=== PATIENT | male | born 1950 | race Caucasian/White ===

== ENCOUNTER 2023-07-19 09:38 | Outpatient (CLI) | payer OTHER, SELFPAY | END 2023-07-19 09:39 | disposition home or self-care (01) | LOC: NFLDREF 07-22 21:21 | PROVIDERS: PCP Internal Medicine; Referring Provider Internal Medicine; Visit Provider Internal Medicine | DX: I50.9 Heart failure, unspecified (principal) | CPT/HCPCS: 80061 ==

== ENCOUNTER 2024-02-05 08:49 | Outpatient (CLI) | payer MEDICARE, SELFPAY ==
[2024-02-05] MEDS: PERFLUTREN LIPID MICROSPHERES 2 ML VIAL IV (09:45)
--- NOTE | 2024-02-05 09:56 | PC.NURSE ---
IV started in right A/C with #[id number] without difficulty. Definitiy given. IV then d/c'd with catheter intact. Pt tolerated procedure with out difficulty
== END 2024-02-05 08:50 | disposition home or self-care (01) ==
PROVIDERS: PCP Internal Medicine; Visit Provider Internal Medicine
DX: I50.9 Heart failure, unspecified (principal)
CPT/HCPCS: 93306; Q9957

== ENCOUNTER 2024-04-30 14:27 | Outpatient (CLI) | payer MEDICARE, SELFPAY ==
--- OUTSIDE RECORDS SUMMARY | 2024-05-01 09:33 | XMS_ITS | Clinical Summary ---
Author Organization [facility] Address [place], [place] [address] Care Team Providers Care Visual Developer Name Role Phone Galileo Carballo MD Primary Care Provider Allergies No known active allergies Medications Medication Sig Dispensed Refills Start Date End Date Status tamsulosin (FLOMAX) 0.4 mg capsuleIndicatio ns:Benign prostatic hyperplasia with weak urinary stream Take 2 Capsules (0.8 mg) by mouth once daily after a meal 180 Capsule 04/25/2022 Active aspirin (ECOTRIN) 81 mg enteric coated tabletIndication s:Arteriosclerot ic heart disease Take 1 Tablet (81 mg) by mouth once daily with a meal. 90 Tablet 3 04/30/2024 Active atorvastatin (LIPITOR) 40 mg tabletIndication s:ASHD (arterioscleroti c heart disease) Take 1 Tablet (40 mg) by mouth at bedtime. You will be due for a follow up with cardiology in July of 2024. Please call in April of 2024 at [phone] to schedule. 90 Tablet 3 04/30/2024 Active clopidogreL (PLAVIX) 75 mg tabletIndication s:ASHD (arterioscleroti c heart disease) Take 1 Tablet (75 mg) by mouth once daily. You will be due for a follow up with cardiology in July of 2024. Please call in April of 2024 at [phone] to schedule. 90 Tablet 3 04/30/2024 Active furosemide (LASIX) 20 mg tabletIndication s:ASHD (arterioscleroti c heart disease) Take 1 Tablet (20 mg) by mouth once daily. You will be due for a follow up with cardiology in July of 2024. Please call in April of 2024 at [phone] to schedule. 90 Tablet 3 04/30/2024 Active losartan (COZAAR) 25 mg tabletIndication s:ASHD (arterioscleroti c heart disease) Take 1 Tablet (25 mg) by mouth once daily. You will be due for a follow up with cardiology in July of 2024. Please call in April of 2024 at [phone] to schedule. 90 Tablet 3 04/30/2024 Active metoprolol tartrate (LOPRESSOR) 100 mg tabletIndication s:ASHD (arterioscleroti c heart disease) Take 1 Tablet (100 mg) by mouth once daily. You will be due for a follow up with cardiology in July of 2024. Please call in April of 2024 at [phone] to schedule. 90 Tablet 3 04/30/2024 Active nitroglycerin (NITROSTAT) 0.4 mg sublingual tabletIndication s:ASHD (arterioscleroti c heart disease) Place 1 Tablet (0.4 mg) under the tongue every 5 minutes if needed for Chest Pain. Please call our clinic if you are experiencing an increase in cardiac symptoms. 25 Tablet 1 04/30/2024 Active spironolactone (ALDACTONE) 25 mg tabletIndication s:ASHD (arterioscleroti c heart disease),HFrEF (heart failure with reduced ejection fraction) (HC) Take 1 Tablet (25 mg) by mouth once daily. 90 Tablet 3 04/30/2024 Active aspirin (ECOTRIN) 81 mg enteric coated tabletIndication s:Arteriosclerot ic heart disease Take 1 Tablet (81 mg) by mouth once daily with a meal. 90 Tablet 3 07/19/2023 4 Discontinue d(Reorder (E-cancel not sent)) nitroglycerin (NITROSTAT) 0.4 mg sublingual tabletIndication s:ASHD (arterioscleroti c heart disease) Place 1 Tablet (0.4 mg) under the tongue every 5 minutes if needed for Chest Pain. Please call our clinic if you are experiencing an increase in cardiac symptoms. 25 Tablet 1 07/19/2023 4 Discontinue d(Reorder (E-cancel not sent)) clopidogreL (PLAVIX) 75 mg tabletIndication s:ASHD (arterioscleroti c heart disease) Take 1 Tablet (75 mg) by mouth once daily. You will be due for a follow up with cardiology in July of 2024. Please call in April of 2024 at [phone] to schedule. 90 Tablet 3 01/01/2024 4 Discontinue d(Reorder (E-cancel not sent)) furosemide (LASIX) 20 mg tabletIndication s:ASHD (arterioscleroti c heart disease) Take 1 Tablet (20 mg) by mouth once daily. You will be due for a follow up with cardiology in July of 2024. Please call in April of 2024 at [phone] to schedule. 90 Tablet 3 01/01/2024 4 Discontinue d(Reorder (E-cancel not sent)) metoprolol tartrate (LOPRESSOR) 100 mg tabletIndication s:ASHD (arterioscleroti c heart disease) Take 1 Tablet (100 mg) by mouth once daily. You will be due for a follow up with cardiology in July of 2024. Please call in April of 2024 at [phone] to schedule. 90 Tablet 3 01/01/2024 4 Discontinue d(Reorder (E-cancel not sent)) atorvastatin (LIPITOR) 40 mg tabletIndication s:ASHD (arterioscleroti c heart disease) Take 1 Tablet (40 mg) by mouth at bedtime. You will be due for a follow up with cardiology in July of 2024. Please call in April of 2024 at [phone] to schedule. 90 Tablet 3 01/01/2024 4 Discontinue d(Reorder (E-cancel not sent)) losartan (COZAAR) 25 mg tabletIndication s:ASHD (arterioscleroti c heart disease) Take 1 Tablet (25 mg) by mouth once daily. You will be due for a follow up with cardiology in July of 2024. Please call in April of 2024 at [phone] to schedule. 90 Tablet 3 01/01/2024 4 Discontinue d(Reorder (E-cancel not sent)) Active Problems Problem Noted Date Diagnosed Date Prostate cancer 03/21/2020 Encounters Date Type Department Care Team Description 04/30/2024 1:30 PM CDT Office Visit [facility] [address] [place] [address] Johny Gamez MD CV General Cardiology Est 04/06/2024 10:00 AM CDT Ancillary Procedure [address] [place] [address] 04/06/2024 9:45 AM CDT Orders Only [address] [place] [address] Lab 04/06/[address] [place] [address] Austin Charles MD Results 04/06/2024 Travel 02/07/[address] [place] [address] Austin Charles MD Results 02/05/2024 9:00 AM CDT Ancillary Procedure [facility] [address] [place] [address] 02/05/2024 Travel from Last 3 Months Immunizations Name Administration Dates Next Due COVID-19 vaccine (Moderna 100mcg/0.5mL) MONI PYLE 02/06/2021 Influenza RIV4 (Age 18+ Year s) PRESERV FREE 07/15/2019 Influenza Virus, Unspecified 08/21/2012 Influenza, High-dose Inactivated 018,07/09/2017,06/20/2015,2013,09/23/2013 Pneumococcal Poly,23-Valent (Pneumovax) 02/23/2016 Pneumococcal conj 13-Valent (Prevnar 13) 08/22/2015 Tdap 02/16/2011 Zoster (Shingrix-RZV, recombinant) 01/08/2019, Social History Tobacco Use Types Packs/Day Years Used Date Smoking Tobacco: Every Day Cigarettes Smokeless Tobacco: Never Tobacco Cessation:Ready to Q uit: Yes; Counseling Given: Yes Alcohol Use Standard Drinks/Week Comments Not Currently 0 (1 standard drink = 0.6 oz pur e alcohol) Social Connections Answer Date Recorded Frequency of Communication with Friends and Fami ly Not on file 10/07/2021 Financial Resource Strain Answer Date R ecorded Difficulty of Paying Living Expenses Not on file 10/07/2021 Difficulty of Paying Living Expenses Not on file 10/07/2021 Sex and Gender Information Value Date Recorded Sex Assigned at Not on file Gender Identity Not on file Sexual Orientation Not on file Obstetrics History Last Filed Vital Signs Vital Sign Reading Time Taken Comments Blood Pressure 117/69 02/13/2021 9:59 AM CDT Pulse 56 02/13/2021 9:59 AM CDT Temperature 37.3 ??C (99.1 ??F) 03/21/2020 2 :32 PM CDT Respiratory Rate 20 02/13/2021 9:59 AM CDT Oxygen Saturation 97% 02/13/2021 9:5 9 AM CDT Inhaled Oxygen Concentration - - Weight 146.5 kg (323 lb) 02/13/2021 9:5 9 AM CDT PT weighed with shoes on. Height - - Body Mass Index - - Plan of Treatment Health Maintenance Due Date Last Done Comments Depression screening for age 12+ 1962 BMI (ht and wt on same day) for age 18+ 1968 Hepatitis C screening for ag e 18-79 1968 Colonoscopy through age 75 1995 Lipids for age 45-75 1995 Medicare Wellness for age 65+ 2015 Tetanus booster 02/16/2021 02/16/2011 COVID-19 vaccine series ( season) 2023 03/07/2021, 02/06/2021 Influenza for age 65+ 06/07/2024 07/15/2019 , 07/23/2018, 07/09/2017, Additional history exists Tdap Completed 02/16/2011 Pneumococcal series for age 65+ Completed 6, 08/22/2015 Zoster (shingles) series for age 50+ Completed 01/08/2019, 07/23/2018 Procedures Procedure Name Priority Date/Time Associated Diagnosis Comments CTA CHEST - DUAL READ Routine 04/06/2024 10:16 AM CDT Dilation of aorta (HC) CREATININE,ISTAT Routine 04/06/2024 9:46 AM CDT Pre-procedure lab exam ECHO TTE COMPLETE W CONTRAST Routine 02/05/2024 9:55 AM CDT Heart failure (HC) from Last 3 Months Results * CTA CHEST - DUAL READ (04/06/2024 10:16 AM CDT) Anatomical Region Laterality Modality CHEST Computed Tomogra phy Impressions 04/06/2024 3:26 PM CDT 1. No acute nonvascular findings in the chest. 2. Please refer to separately dictated report for evaluation of cardiovascular structures. Please note that all CT scans at this facility use dose modulation, iterative reconstruction, and/or weight-based dosing when appropriate to reduce radiation dose to as low as reasonably achievable. Dictated by Baljit Rapp MD @ 04/06/2024 12:45:53 PM (Electronic Signature) Narrative 04/06/2024 3:26 PM CDT STUDY: THORACIC AORTIC CT ANGIOGRAM Study date: 04/06/2024 Indication: 73 year-old man with thoracic aorta enlargement on echocardiography has been referred for evaluation of thoracic aorta size and morphology. STUDY PARAMETERS: Scanner: Siemens Definition Drive Contrast: 100 ml of Omnipaque 350 Scan protocol: Gated high-pitch Radiation dose length product: 243 Image quality: Excellent FINAL IMPRESSIONS: Borderline enlarged aortic sinus (41 mm cusp-cusp) and ascending aorta (40 x 40 mm) for patient height. Please see radiology report for nonvascular findings. FINDINGS: Thoracic aorta: Left-sided arch. Mild atheromatous disease in the arch. Maximum cross-sectional dimensions are - Aortic sinus: 41 mm maximum [id number]. Ascending aorta: 40 x 40 mm. Arch: 33 x 29 mm Descending thoracic aorta: 26 x 25 mm. Great arteries: Normal great artery branching pattern. ??Brachiocephalic artery Patent. ??Visualized right subclavian artery Patent. ??Visualized right common carotid artery Patent. ??Visualized left common carotid artery Patent. ??Visualized left subclavian artery Patent. Pulmonary trunk: Maximum cross-sectional diameters are 34 x 32 mm. Vena cavae: Normal attachments to the right atrium. Pericardium: Normal without effusion. Coronary arteries: Evidence of calcium and stents in the LAD and D1. FOR PATIENT: Results are automatically released to your [employer] account once available, in compliance with federal regulations. ?? This means that you may see your results before your provider has had a chance to review them. ??Please allow 2-3 business days for your provider to comment on the results. Chris Barriga MD 04/06/2024 For Patients: As a result of the Century Cures Act, medical imaging exams and procedure reports are released immediately into your electronic medical record. ??You may view this report before your referring provider. ?? If you have questions, please contact your health care provider. OVER-READ ??OVER-READ ??OVER-READ OVER-READ: DETAILED RADIOLOGY EXTRACARDIAC OVER-READ OF CARDIAC CT 04/06/2024 TECHNIQUE: ??Please see cardiology report for technical information. ??100 cc Omnipaque-350 intravenous contrast. ?? This exam is being performed in conjunction with the services provided by the [facility] ([facility]). CLINICAL HISTORY: ??Aortic dilatation. Cardiac over-read. FINDINGS: Chest: Visualized thyroid is symmetric. No significant lymphadenopathy in the chest. Mild bibasilar dependent atelectatic changes. No focal airspace opacities or pleural effusions. Upper abdomen: No acute findings in the visualized portions. Musculoskeletal: Visualized osseous structures demonstrate diffuse degenerative changes. Austin Charles MD CT * (ABNORMAL) CREATININE,ISTAT (04/06/2024 9:46 AM CDT) CREATININE, POCT 1.20(H) 0.57 - 1.11 mg/dL 04/06/2024 9:56 AM CDT [facility] Comment:Caution: Patients ta neha Hydroxyurea have falsely increased iStat Creatinine results. Verify creatinine results ordering a Creatinine (84050.2) eGFR 64(L) >90 mL/min/1.7 3m2 04/06/2024 9:56 AM CDT [facility] Comment:As of 2021, eG FR is calculated by the CKD-EPI creatinine equation without race adjustment. eGFR can be influenced by muscle mass, exercise, and diet. The reported eGFR is an estimation only and is only applicable if the renal function is stable. Blood BLOOD SPECIMEN / Unknown 04/06/2024 9:46 AM CDT 04/06/2024 9:56 AM CDT Porter Rizo MD [facility] [address] [place] [address], [place] * ECHO TTE COMPLETE W CONTRAST (02/05/2024 9:55 AM CDT) AORTIC VALVE MEAN PG 3 mmHg EJECTION FRACTION 52 % LVEDD 5.5 cm EJECTION FRACTION 45 - 50% Anatomical Region Laterality Modality Ultrasound 02/05/2024 9:14 AM CDT Narrative 02/05/2024 11:34 AM CDT ECHOCARDIOGRAM MARY Danielle KISHORE ? Accession#: ?? [id number] : ?1950 73 years Study Date: ?? 02/05/2024 9:14:06 AM Gender: M ?BP: ? 103/60 mmHg Height: 183.00 cm ?BSA: ?2.62 m? ? ? Weight: 147.00 kg ?Tech: ? MSR ? Referring MD: AUSTIN CHARLES Site: ? [facility] Reading Location: mobile op Patient Location: Outpatient. Procedure: Color Doppler, Spectral Doppler and 2D w/ Contrast. Indication for study: Heart failure Cardiac Rhythm: Normal sinus and with premature ventricular contractions.Study quality: Final Impressions: 1. Normal LV size, normal wall thickness, mildly reduced global systolic function with an estimated EF of 45 - 50%. 2. Posterior wall and basal inferior segment are abnormal. 3. Right ventricular cavity size is normal, global systolic RV function is normal. 4. The mitral valve is sclerotic, no mitral regurgitation. 5. The ascending aorta is dilated with a maximal diameter of 4.5 cm. 6. Frequent PVCs. 7. Echo contrast was administered to enhance visualization of all left ventricular segments. Comparison The level of ascending aorta of maximal dilation on today's study was not visualized on the prior study. Chamber Sizes and Function Normal left ventricular size, normal wall thickness, mildly reduced global systolic function with an estimated EF of 45 - 50%. Left atrial size is normal. Right ventricular cavity size is normal, global systolic RV function is normal. The right atrium is normal. The pulmonary artery is of normal size and origin. The sinus of Valsalva is dilated. The ascending aorta is dilated. The posterior wall and basal inferior segment are hypokinetic. Valves, RV Pressures and Diastolic Function The aortic valve is normal in structure and trileaflet, no stenosis and no regurgitation. The mitral valve is sclerotic, no mitral regurgitation. Normal diastolic function. The tricuspid valve is normal in structure. Tricuspid regurgitation is regurgitation is not evident. The pulmonic valve is normal. No pulmonary regurgitation. Masses, Effusion, Shunts There is no pericardial effusion. The inferior vena cava is normal sized, respiratory size variation greater than 50%. No left to right shunting was detected by limited color flow Doppler interrogation of the interatrial septum. MEASUREMENTS AND CALCULATIONS 2-D Measurements and LV Function: LVID (d) 5.5 cm LV FS% (2D) ?? 22 % LVID (s) 4.3 cm LVOT diameter 2.1 cm IVS (d) ??1.1 cm HR ?63 bpm LVPW (d) 1.1 cm LA Vol index ??27 ml/m2 Ao Sinus 4.3 cm RV Max 4C (d) 5.1 cm Asc Ao ?? 4.5 cm Diastology: Mitral ?Tissue Doppler E Peak 0.5 m/s ??e', Septum ? 0.07 m/s A Peak 0.7 m/s ??e', Lateral ?0.10 m/s E/A ?0.6 ?E/e' Average ?? 5.67 DT ? 233 msec Aortic Valve: Vmax ? 1.2 m/s ??SHIRLEY (V) ?? 2.92 cm? ? ? VTI ?0.29 m ?? SHIRLEY (I) ?? 2.98 cm? ? ? LVOT V max 1.0 m/s ??Max PG ?6 mmHg LVOT VTI ?? 0.25 m ?? Mean PG ?? 3 mmHg SV ? 87 ml ?Dim Index 0.84 SV index ?? 33 ml/m? ? ? CO ?5.5 l/min ?CI ?2.1 l/min/m? ? ? Mitral Valve: MVA ?3.3 cm? ? ? MV P 1/2 68 msec Tricuspid Valve and estimated PA pressures: TAPSE 2.5 cm Contrast documentation: 3.5 ml diluted Definity, lot #[id number], [facility] [id number] was administered peripherally to enhance visualization of all left ventricular segments. . This study was interpreted by an [facility] accredited facility. CC: [facility] ([facility]) [facility]. ??Final ?? Procedure Note Giuseppe Leavitt MD - 02/05/2024 ECHOCARDIOGRAM MARY ELKINS : 1950 73 years Study Date: 02/05/2024 9:14:06 AM Gender: M BP: 103/60 mmHg Height: 183.00 cm BSA: 2.62 m? ? ? Weight: 147.00 kg Tech: TYLER Referring MD: AUSTIN CHARLES Site: [facility] Reading Location: mobile op Patient Location: Outpatient. Procedure: Color Doppler, Spectral Doppler and 2D w/ Contrast. Indication for study: Heart failure Cardiac Rhythm: Normal sinus and with premature ventricularcontractions.Study quality: Final Impressions: 1. Normal LV size, normal wall thickness, mildly reduced global systolicfunction with an estimated EF of 45 - 50%. 2. Posterior wall and basal inferior segment are abnormal. 3. Right ventricular cavity size is normal, global systolic RV functionis normal. 4. The mitral valve is sclerotic, no mitral regurgitation. 5. The ascending aorta is dilated with a maximal diameter of 4.5 cm. 6. Frequent PVCs. 7. Echo contrast was administered to enhance visualization of all leftventricular segments. Comparison The level of ascending aorta of maximal dilation on today's study was notvisualized on the prior study. Chamber Sizes and Function Normal left ventricular size, normal wall thickness, mildly reduced globalsystolic function with an estimated EF of 45 - 50%. Left atrial size isnormal. Right ventricular cavity size is normal, global systolic RVfunction is normal. The right atrium is normal. The pulmonary artery is ofnormal size and origin. The sinus of Valsalva is dilated. The ascendingaorta is dilated. The posterior wall and basal inferior segment arehypokinetic. Valves, RV Pressures and Diastolic Function The aortic valve is normal in structure and trileaflet, no stenosis and noregurgitation. The mitral valve is sclerotic, no mitral regurgitation.Normal diastolic function. The tricuspid valve is normal in structure.Tricuspid regurgitation is regurgitation is not evident. The pulmonicvalve is normal. No pulmonary regurgitation. Masses, Effusion, Shunts There is no pericardial effusion. The inferior vena cava is normal sized,respiratory size variation greater than 50%. No left to right shunting wasdetected by limited color flow Doppler interrogation of the interatrialseptum. MEASUREMENTS AND CALCULATIONS 2-D Measurements and LV Function: LVID (d) 5.5 cm LV FS% (2D) 22 % LVID (s) 4.3 cm LVOT diameter 2.1 cm IVS (d) 1.1 cm HR 63 bpm LVPW (d) 1.1 cm LA Vol index 27 ml/m2 Ao Sinus 4.3 cm RV Max 4C (d) 5.1 cm Asc Ao 4.5 cm Diastology: Mitral Tissue Doppler E Peak 0.5 m/s e', Septum 0.07 m/s A Peak 0.7 m/s e', Lateral 0.10 m/s E/A 0.6 E/e' Average 5.67 DT 233 msec Aortic Valve: Vmax 1.2 m/s SHIRLEY (V) 2.92 cm? ? ? VTI 0.29 m SHIRLEY (I) 2.98 cm? ? ? LVOT V max 1.0 m/s Max PG 6 mmHg LVOT VTI 0.25 m Mean PG 3 mmHg SV 87 ml Dim Index 0.84 SV index 33 ml/m? ? ? CO 5.5 l/min CI 2.1 l/min/m? ? ? Mitral Valve: MVA 3.3 cm? ? ? MV P 1/2 68 msec Tricuspid Valve and estimated PA pressures: TAPSE 2.5 cm Contrast documentation: 3.5 ml diluted Definity, lot #[id number], [facility]#[id number] was administered peripherally to enhance visualization of allleft ventricular segments. . This study was interpreted by an [facility] accredited facility. CC: [facility] (med records) [facility]. Final Austin Charles MD ECHO ORD from Last 3 Months Care Teams Visual Developer Relationship Specialty Start Date End Date Galileo Carballo MD [address] [place] [address] PCP - General Internal Medicine 06/22/20
== END 2024-04-30 14:28 | disposition home or self-care (01) ==
LOC: NFLDREF 05-01 09:32
PROVIDERS: PCP Internal Medicine; Referring Provider Internal Medicine; Visit Provider Internal Medicine
DX: I50.20 Unspecified systolic (congestive) heart failure (principal)
CPT/HCPCS: 80048; 80061

== ENCOUNTER 2024-05-07 07:44 | Outpatient (CLI) | payer MEDICARE, SELFPAY ==
--- OUTSIDE RECORDS SUMMARY | 2024-05-08 07:13 | XMS_ITS | Continuity of Care Document ---
Author Organization [facility], [facility] Address [address] [place] [address] Assessment No assessment recorded. Plan of Treatment Reminders Order Date Submit Date Provider Last Modified By Organization Details Last Modified Time Details Appointments None recorded . Lab PSA, serum or plasma 024 04/08/20 24 [facility], [address], [place], [address], 4 19:10:10 PSA, total, serum or plasma 024 04/08/20 24 [facility], [address], [place], [address], 4 19:10:10 Referral None recorded . Procedures None recorded . Surgeries None recorded . Imaging None recorded . Medication Orders None recorded . Patient TargetsNo targets recorded. Patient InstructionsNo instructions recorded. Reason for Referral None Reported. Results Created Date Observation Date Name Description Value Unit Range Abnormal Flag LastModifiedBy Organization Detail LastModifiedTime 04/08/20 24 04/08/2024 PSA, serum or plasm a PSA 0.15ng /mL 0-4.0 NG/mL Not Available [facility] [address], [place], [address], 04/02/2024 09:54:53 Result Notes None recorded. Problems Name Status Onset Date Resolution Date Notes Provider Name and Address Organization Details Recorded Time Primary malignant neoplasm of prostate Active 05/15/20 12 185 : CARCINOMA- PROSTATE - Notes:09/06 2 biopsies 3+4=7. negative bone scan and ct - s/p XRT and 2 yr of hormonal therapy (complete 05/2012). Not Available [facility] 03/24/2020 02:07:25 Prostate specific antigen above reference range Active 03/31/20 12 790.93 : ELEVATED PSA Not Available [facility] 03/24/2020 02:07:25 Problem Notes None recorded. Procedures Surgical History Date Name Laterality Status Provider Name and Address Organization Details Recorded Time 04/08/20 24 Bladder Scan completed [facility] DickensJeff bhakta [facility] 04/08/2024 11:15:31 04/08/20 24 Blood Draw/ARCHIVES TECHNICIAN/PSA RESULTS completed [facility] DickensJeff bhakta [facility] 04/08/2024 11:15:39 04/02/20 23 Bladder Scan completed Glenn Calderon MD [address] [place] [address],[address], [address], [facility] 04/02/2023 11:04:10 04/02/20 23 Blood Draw/ARCHIVES TECHNICIAN/PSA RESULTS completed Glenn Calderon MD [address] [place] [address],[address], [address], [facility] 04/02/2023 11:04:18 Appendectomy completed Glenn Calderon MD [address] [place] [address],[address], [address], [facility] 04/02/2023 11:03:55 Imaging Results None recorded. Procedure Notes None recorded. Medical Equipment None Reported. Allergies No known drug allergies Medications Name Sig Start Date Stop Date Status Note LastModified by Organization Details LastModified Time atorvastatin 40 mg tablet TAKE ONE TABLET BY MOUTH AT BEDTIME* active Not Available Not Available No t Available metoprolol tartrate 100 mg tablet TAKE ONE TABLET BY MOUTH ONE TIME DAILY* active Not Available Not Available Not Available clopidogrel 75 mg tablet TAKE ONE TABLET BY MOUTH ONE TIME DAILY* active Not Available Not Available Not Available prednisolone acetate 1 % eye drops,suspen anival place 1 drop into the right eye four times daily for 2 days, then 3 times daily for 2 days, then twice daily for 2 days, then once daily for 2 days.* active Not Available Not Available No t Available tamsulosin 0.4 mg capsule TAKE TWO CAPSULES BY MOUTH DAILY* active Not Available Not Available No t Available losartan 25 mg tablet TAKE ONE TABLET BY MOUTH ONE TIME DAILY* active Not Available Not Available Not Available lansoprazole 15 mg capsule,mckenzie yed release Take 1 capsule every day by oral route. active Not Available Not Available No t Available nitroglyceri n 0.[address] 1 Tablet under the tongue every 5 minutes if needed for Chest Pain. Please call our clinic if you are experiencin g an increase in cardiac symptoms.* active Not Available Not Available N ot Available furosemide 20 mg tablet TAKE ONE TABLET BY MOUTH ONE TIME DAILY* active Not Available Not Available Not Available aspirin 81 mg capsule Take 1 capsule every day by oral route. active Not Available Not Available No t Available Vitals Date Recorded Body height Body mass index (BMI) Body weight Provider Name and Address Organization Details Last Updated DateTime 04/08/2024 180.34 cm 41.8 kg/m2 750186.71 g Denita langston [facility] 04/08/2024 11:14:51 Social History Question Answer Notes LastModified by Organizat ion Details LastModified Time Tobacco Smoking Status Current Every Day Smoker Glenn Calderon MD [address] [place] [address],[facility] [address], [place], [address], [facility] 04/02/2023 11:03:45 What Is Your Level Of Alcohol Consumption? None Information not available 04/02/2023 What Is Your Level Of Caffeine Consumption? Occasional Information not available 04/02/2023 What Was The Date Of Your Most Recent Tobacco Screening? 04/08/2024 [email or web address] Information not available 04/08/2024 How Much Tobacco Do You Smoke? 2 PPW Information not available 04/02/2023 Sex: Unknown Functional Status None recorded. Mental Status None recorded. Family History Relationship Description Onset Age of this Age Resolved Age Notes Brother Family history of malignant neoplasm of prostate Father Family history of malignant neoplasm of prostate Medical History Condition Response GERD/Acid Reflux Y Cancer Y High Cholesterol Y Immunizations Vaccine Type Date Status Provider Name and Address Organization Details Recorded Time Influenza, recombinant, quadrivalent, PF 07/15/2019 neena bhakta [facility] 04/08/2024 11:14:56 zoster recombinant 07/23/2018 completed Miletzi Dickens-Valer o null, [facility] 04/08/2024 11:14:57 Influenza, high-dose, quadrivalent, PF 07/20/2022 completed Miletzi Dickens-Valer o null, [facility] 04/08/2024 11:14:57 Influenza, high-dose, quadrivalent, PF 07/26/2021 completed Miletzi Dickens-Valer o null, [facility] 04/08/2024 11:14:57 COVID-19, mRNA, LNP-S, PF, 100 mcg/0.5mL dose or 50 mcg/0.25mL dose 02/06/2021 completed Miletzi Dickens-Valer o null, [facility] 04/08/2024 11:14:57 COVID-19, mRNA, LNP-S, PF, 100 mcg/0.5mL dose or 50 mcg/0.25mL dose 03/07/2021 completed Miletzi Dickens-Valer o null, [facility] 04/08/2024 11:14:57 influenza, unspecified formulation 08/21/2012 completed Miletzi Dickens-Valer o null, [facility] 04/08/2024 11:14:57 Tdap 02/16/2011 completed Miletzi Dickens-Valer o null, [facility] 04/08/2024 11:14:57 Influenza, high-dose, trivalent, PF 06/20/2015 completed Miletzi Dickens-Valer o null, [facility] 04/08/2024 11:14:57 Influenza, high-dose, trivalent, PF 06/25/2014 completed Miletzi Dickens-Valer o null, [facility] 04/08/2024 11:14:57 Influenza, high-dose, trivalent, PF 07/09/2017 completed Miletzi Dickens-Valer o null, [facility] 04/08/2024 11:14:57 Influenza, high-dose, trivalent, PF 07/23/2018 completed Miletzi Dickens-Valer o null, [facility] 04/08/2024 11:14:57 Influenza, high-dose, trivalent, PF 09/23/2013 completed VIRGIE Bundy [facility] 04/08/2024 11:14:57 pneumococcal polysaccharide PPV23 02/23/2016 completed Glenn Calderon MD [address] [place] [address],[address], [address], [facility] 04/02/2023 11:02:35 Pneumococcal conjugate PCV 13 08/22/2015 completed Glenn Calderon MD [address] [place] [address],[facility] [address], [place], [address], [facility] 04/02/2023 11:02:35 Past Encounters Encounter ID Performer Location Encounter Start Date Encounter Closed Date Diagnosis/Indication Diagnosis SNOMED-CT Code [id number] Denita Jenkins lero [facility] [address] [place] [id number] 04/08/2024 10:39:09 04/17/2024 13:48:27 Malignant tumor of prostate [id number] Benign pro static hyperplasia with outflow obstruction [id number] Health Concerns Section Related Observation LastModified by Organization Detai ls LastModified Time None Recorded Concern Status LastModified by Organization Details LastModified Time None Recorded Payers Encounter Date Sequence Insurance Name Policy Number Policy Hernandez Covered Member ID Hernandez Member ID Guarantor Name 04/08/2024 1 [facility] [id number] Ron Elkins [id number] Ron Elkins Notes Date Note Type Note Provider Name and Address Organization Details Recorded Time 04/08/2024 text/html HPI Notes: 73 yo male with H/O prostate cancer (dx 04/17/12) - T1c - [place] 3+4 = 7 - involving all cores - prostate = 43 gm, PSA = 10.9. CT scan and Bone scan (04/29/12) were negative for metastatic disease. - s/p EBRT (completed 09/17/12) - s/p ADT (Lupron) - 2 yr course - (complete in May 2014) He is currently on Flomax 0.4 mg daily for obstructive urinary symptoms. 02/13/21 - He presents for follow-up on prostate cancer. He denies hot flashes. He notes occasional slow stream - denies dysuria. He voids every 3-4 hours during the day and 0-1x per night. He does have erectile dysfunction - unable to obtain or maintain erections - he does not want treatment at this time. 04/02/23 - He presents for follow-up on Prostate cancer. He voids every 3-4 hours during the day and 0-1x per night. He does have erectile dysfunction - unable to obtain or maintain erections 04/08/24-He presents for follow-up on Prostate cancer. He voids every 3-4 hours during the day and 0-1x/night. - PSA - 0.15 - PVR = 14 PSA - 10.9 (April 2012) - 0.08 (11/19/12) - < 0.06 (01/12/15) - < 0.06 (07/14/15) - < 0.06 (02/23/16) - 0.08 (07/23/19) - 0.12 (03/21/20) - 0.09 (06/22/20) - 0.08 (02/08/21) - 0.12 (07/12/21) - 0.15 (04/10/22) - 0.14 (04/02/23) - 0.15 (04/08/24) CT scan and Bone scan (04/29/12) were negative for metastatic disease Denita bhakta [place] [facility] 04/08/2024 17:28:46
--- OUTSIDE RECORDS SUMMARY | 2024-05-08 07:13 | XMS_ITS | Clinical Summary ---
Author Organization [facility] Address [place], [place] [address] Care Team Providers Care Digital Court Reporter Name Role Phone Galileo Carballo MD Primary [...] Please call in April of 2024 at [phone] to schedule. 90 Tablet 3 04/30/2024 Active clopidogreL (PLAVIX) 75 mg tabletIndication s:ASHD (arterioscleroti c heart disease) Take 1 Tablet (75 mg) by mouth once daily. You will be due for a follow up with cardiology in July of 2024. Please call in April of 2024 at [phone] to schedule. 90 Tablet 3 04/30/2024 Active furosemide (LASIX) 20 mg tabletIndication s:ASHD (arterioscleroti c heart disease) Take 1 Tablet (20 mg) by mouth once daily. You will be due for a follow up with cardiology in July of 2024. Please call in April of 2024 at [phone] to schedule. 90 Tablet 3 04/30/2024 Active losartan (COZAAR) 25 mg tabletIndication s:ASHD (arterioscleroti c heart disease) Take 1 Tablet (25 mg) by mouth once daily. You will be due for a follow up with cardiology in July of 2024. Please call in April of 2024 at [phone] to schedule. 90 Tablet 3 04/30/2024 Active metoprolol tartrate (LOPRESSOR) 100 mg tabletIndication s:ASHD (arterioscleroti c heart disease) Take 1 Tablet (100 mg) by mouth once daily. You will be due for a follow up with cardiology in July of 2024. Please call in April of 2024 at [phone] to schedule. 90 Tablet 3 04/30/2024 Active [...] Please call in April of 2024 at [phone] to schedule. 90 Tablet 3 01/01/2024 4 Discontinue d(Reorder (E-cancel not sent)) furosemide (LASIX) 20 mg tabletIndication s:ASHD (arterioscleroti c heart disease) Take 1 Tablet (20 mg) by mouth once daily. You will be due for a follow up with cardiology in July of 2024. Please call in April of 2024 at [phone] to schedule. 90 Tablet 3 01/01/2024 4 Discontinue d(Reorder (E-cancel not sent)) metoprolol tartrate (LOPRESSOR) 100 mg tabletIndication s:ASHD (arterioscleroti c heart disease) Take 1 Tablet (100 mg) by mouth once daily. You will be due for a follow up with cardiology in July of 2024. Please call in April of 2024 at [phone] to schedule. 90 Tablet 3 01/01/2024 4 Discontinue d(Reorder (E-cancel not sent)) atorvastatin (LIPITOR) 40 mg tabletIndication s:ASHD (arterioscleroti c heart disease) Take 1 Tablet (40 mg) by mouth at bedtime. You will be due for a follow up with cardiology in July of 2024. Please call in April of 2024 at [phone] to schedule. 90 Tablet 3 01/01/2024 4 Discontinue d(Reorder (E-cancel not sent)) losartan (COZAAR) 25 mg tabletIndication s:ASHD (arterioscleroti c heart disease) Take 1 Tablet (25 mg) by mouth once daily. You will be due for a follow up with cardiology in July of 2024. Please call in April of 2024 at [phone] to schedule. 90 Tablet 3 01/01/2024 4 Discontinue d(Reorder (E-cancel not sent)) Active Problems Problem Noted Date Diagnosed Date Prostate cancer 03/21/2020 Encounters Date Type Department Care Team Description 05/07/2024 Telephone [facility] [address] [facility] [address] [place] [address] Johny Gamez MD Results (CMP) 05/01/2024 Telephone [facility] [address] [place] [address] [place] [address] Johny Gamez MD Results (BMP & Lipid Panel) 04/30/2024 1:30 PM CDT Office Visit [facility] [address] [place] [address] Johny Gamez MD CV General Cardiology Est 04/30/2024 Orders Only [facility] Scanner 1 scan: (1-Ord) LOUIE AVINA RESULTS, 04/30/2024 04/06/2024 10:00 AM CDT Ancillary Procedure [facility] Catrina Benavides [address] [place] [address] [place] [address] [id number] 04/06/2024 9:45 AM CDT Orders Only [facility] [place] [address] Lab 04/06/2024 [facility] [place] [address] Vasquez Osborne MD Results 04/06/2024 Travel 02/07/2024 Telephone [facility] [place] [address] [address] Vasquez Osborne MD Results from Last 3 Months Immunizations Name Administration [...] Procedure Name Priority Date/Time Associated Diagnosis Comments SCAN-LABORATORY REPORT 04/30/2024 12:00 AM CDT CTA CHEST - DUAL READ Routine 04/06/2024 10:16 AM CDT Dilation of aorta (HC) CREATININE,ISTAT Routine 04/06/2024 9:46 AM CDT Pre-procedure lab exam from Last 3 Months Results * SCAN-LABORATORY REPORT (04/30/2024 12:00 AM CDT) Scanner OTHER * CTA CHEST - DUAL READ (04/06/2024 [...] are - Aortic sinus: 41 mm maximum [id number]. Ascending aorta: 40 x 40 mm. Arch: [...] PATIENT: Results are automatically released to your [employer] account once available, in compliance with federal regulations. ?? This means that you may see your results before your provider has had a chance to review them. ??Please allow 2-3 business days for your provider to comment on the results. Chris Barriga MD 04/06/2024 For Patients: As a result of the 21st Century Cures Act, medical imaging exams and [...] conjunction with the services provided by the [facility] ([facility]). CLINICAL HISTORY: ??Aortic dilatation. Cardiac over-read. FINDINGS: Chest: Visualized thyroid is symmetric. No significant lymphadenopathy in the chest. Mild bibasilar dependent atelectatic changes. No focal airspace opacities or pleural effusions. Upper abdomen: No acute findings in the visualized portions. Musculoskeletal: Visualized osseous structures demonstrate diffuse degenerative changes. Vasquez Osborne MD CT * (ABNORMAL) CREATININE,ISTAT (04/06/2024 9:46 AM CDT) CREATININE, POCT 1.20(H) 0.57 - 1.11 mg/dL 04/06/2024 9:56 AM CDT [email or web address] Comment:Caution: Patients ta neha Hydroxyurea have falsely increased iStat Creatinine results. Verify creatinine results ordering a Creatinine (12690.2) eGFR 64(L) >90 mL/min/1.7 3m2 04/06/2024 9:56 AM CDT [facility] Comment:As of 2021, eG FR is calculated by the CKD-EPI creatinine equation without race adjustment. eGFR can be influenced by muscle mass, exercise, and diet. The reported eGFR is an estimation only and is only applicable if the renal function is stable. Blood BLOOD SPECIMEN / Unknown 04/06/2024 9:46 AM CDT 04/06/2024 9:56 AM CDT Porter Rizo MD CHEMISTRY [facility] [address] [facility] [address] [place] [address], from Last 3 Months Care Teams Digital Court Reporter Relationship Specialty Start Date End Date Galileo Carballo MD [address] [id number] PCP - General Internal Medicine 06/22/20
== END 2024-05-07 07:45 | disposition home or self-care (01) ==
PROVIDERS: PCP Internal Medicine; Referring Provider Internal Medicine; Visit Provider Internal Medicine
DX: I50.20 Unspecified systolic (congestive) heart failure (principal)
CPT/HCPCS: 80048; 80061

== ENCOUNTER 2024-06-15 07:30 | Outpatient (CLI) | payer MEDICARE, SELFPAY ==
--- OUTSIDE RECORDS SUMMARY | 2024-06-22 00:10 | XMS_ITS | Clinical Summary ---
Author Organization [facility] Address [place], [place] [address] Care Team Providers Care Neon Electrician Name Role Phone Galileo Carballo MD Primary [...] Please call in April of 2024 at [phone] to schedule. 90 Tablet 3 04/30/2024 Active clopidogreL (PLAVIX) 75 mg tabletIndication s:ASHD (arterioscleroti c heart disease) Take 1 Tablet (75 mg) by mouth once daily. You will be due for a follow up with cardiology in July of 2024. Please call in April of 2024 at [phone] to schedule. 90 Tablet 3 04/30/2024 Active furosemide (LASIX) 20 mg tabletIndication s:ASHD (arterioscleroti c heart disease) Take 1 Tablet (20 mg) by mouth once daily. You will be due for a follow up with cardiology in July of 2024. Please call in April of 2024 at [phone] to schedule. 90 Tablet 3 04/30/2024 Active losartan (COZAAR) 25 mg tabletIndication s:ASHD (arterioscleroti c heart disease) Take 1 Tablet (25 mg) by mouth once daily. You will be due for a follow up with cardiology in July of 2024. Please call in April of 2024 at [phone] to schedule. 90 Tablet 3 04/30/2024 Active metoprolol tartrate (LOPRESSOR) 100 mg tabletIndication s:ASHD (arterioscleroti c heart disease) Take 1 Tablet (100 mg) by mouth once daily. You will be due for a follow up with cardiology in July of 2024. Please call in April of 2024 at [phone] to schedule. 90 Tablet 3 04/30/2024 Active [...] mouth once daily. 90 Tablet 3 04/30/2024 4 Discontinue d(*Allergic /Adverse Rxn/Side Effects) Active Problems Problem Noted Date Diagnosed Date Prostate cancer 03/21/2020 Encounters Date Type Department Care Team Description 06/15/2024 Orders Only [facility] Scanner 1 scan: (1-Ord) [facility], 06/15/2024 05/07/2024 Orders Only [facility] Scanner 1 scan: (1-Ord) [facility], 05/07/2024 05/07/2024 Telephone [facility] [address] [facility] [address] [place] [address] Johny Gamez MD Results (CMP/06/15 BMP) 05/01/2024 Telephone [facility] [address] [place] [address] [place] [address] Johny Gamez MD Results (BMP & Lipid Panel) 04/30/2024 1:30 PM CDT Office Visit [facility] [address] [place] [address] Johny Gamez MD CV General Cardiology Est 04/30/2024 Orders Only [facility] Scanner 1 scan: (1-Ord) FABRICE, LOUIE RESULTS, 04/30/2024 04/06/2024 10:00 AM CDT [facility] [address] [place] [address] 04/06/2024 9:45 AM CDT [facility] [place] [address] [place] [address] [address] [place] [address] Lab 04/06/[address] [facility] [address] Vasquez Osborne MD Results 04/06/2024 Travel from Last 3 Months Immunizations Name [...] 02/16/2021 02/16/2011 COVID-19 vaccine series ( season) 2024 03/07/2021, 02/06/2021 Influenza for age 65+ 06/07/2024 07/15/2019 , 07/23/2018, 07/09/2017, Additional history exists Tdap Completed 02/16/2011 Pneumococcal series for age 65+ Completed 6, 08/22/2015 Zoster (shingles) series for age 50+ Completed 01/08/2019, 07/23/2018 Procedures Procedure Name Priority Date/Time Associated Diagnosis Comments SCAN-LABORATORY REPORT 06/15/2024 12:00 AM CDT SCAN-LABORATORY REPORT 05/07/2024 12:00 AM CDT SCAN-LABORATORY REPORT 04/30/2024 12:00 AM CDT CTA CHEST - DUAL READ Routine 04/06/2024 10:16 AM CDT Dilation of aorta (HC) CREATININE,ISTAT Routine 04/06/2024 9:46 AM CDT Pre-procedure lab exam from Last 3 Months Results * SCAN-LABORATORY REPORT (06/15/2024 12:00 AM CDT) Only the most recent of3 resultswithin the time period is included. Scanner OTHER * CTA CHEST - DUAL [...] are - Aortic sinus: 41 mm maximum [id number]. Ascending aorta: 40 x 40 mm. Arch: [...] PATIENT: Results are automatically released to your [employer] account once available, in compliance with federal [...] conjunction with the services provided by the [facility] ([facility]). CLINICAL HISTORY: ??Aortic dilatation. Cardiac over-read. [...] 1.11 mg/dL 04/06/2024 9:56 AM CDT [email or web address] Comment:Caution: Patients ta neha Hydroxyurea have falsely increased iStat Creatinine results. Verify creatinine results ordering a Creatinine (15123.2) eGFR 64(L) >90 mL/min/1.7 3m2 04/06/2024 9:56 AM CDT [email or web address] Comment:As of 2021, eG FR is calculated by the CKD-EPI creatinine equation without race adjustment. eGFR can be influenced by muscle mass, exercise, and diet. The reported eGFR is an estimation only and is only applicable if the renal function is stable. Blood BLOOD SPECIMEN / Unknown 04/06/2024 9:46 AM CDT 04/06/2024 9:56 AM CDT Porter Rizo MD CHEMISTRY [facility] [address] [facility] [address] [place] [address], from Last 3 Months Care Teams Neon Electrician Relationship Specialty Start Date End Date Galileo Carballo MD [address] [place] [address] PCP - General Internal Medicine 06/22/20
--- OUTSIDE RECORDS SUMMARY | 2024-06-22 00:10 | XMS_ITS | Data Portability ---
Author Organization [facility], [facility] Address [address] [place] [address] Assessment No assessment recorded. Plan of Treatment Reminders Order Date Submit Date Provider Last Modified By Organization Details Last Modified Time Details Appointments None recorded. Lab PSA, total, serum or plasma 2021 022 bcubias Not available 2 11:54:30 PSA, serum or plasma 2022 023 [facility], [address], [place], [address], 3 11:05:33 PSA, total, serum or plasma 2022 023 bcubias [facility], [address], [place], [address], 3 11:51:05 PSA, serum or plasma 2023 024 [facility], [address], [place], [address], 4 19:10:10 PSA, total, serum or plasma 2023 024 [facility], [address], [place], [address], 4 19:10:10 Referral None recorded. Procedures None recorded. Surgeries None recorded. Imaging None recorded. Medication Orders tamsulosin 0.4 mg capsule 2021 022 [id number], [address], [address], 10:06:59 Patient TargetsNo targets recorded. Patient Instructions Encounter Date Encounter Id Patient Instructions Last Modified By Organization Details Last Modified Time 05/02/2022 [id number] telephone visit - 7 minutes Not available 05/02/2022 10:11:08 Reason for Referral None Reported. Results Created Date Observation Date Name Description Value Unit Range Abnormal Flag Note LastModifiedBy Organization Detail LastModifiedTime 04/02/20 23 04/02/2023 PSA, serum or plasm a PSA 0.14 ng/mL 0-4.0 Not Available [facility] [address], [place], [address], 04/02/2023 11:05:21 04/08/20 24 04/08/2024 PSA, serum or plasm a PSA 0.15ng /mL 0-4.0 NG/mL Not Available [facility] [address], [place], [address], 04/02/2024 09:54:53 Result Notes None recorded. Problems Name Problem SNOMED Code Status Onset Date Resolution Date Notes Provider Name and Address Organization Details Recorded Time Primary malignant neoplasm of prostate 33633778 Active 2011 185 : CARCINOMA -PROSTATE - Notes: biopsies 3+4=7. negative bone scan and ct - s/p XRT and 2 yr of hormonal therapy (complete 05/2012). Not Available [facility] 0 02:07:25 Prostate specific antigen above reference range 707025248 Active 2011 790.93 : ELEVATED PSA Not Available [facility] 0 02:07:25 Problem Notes None recorded. Procedures Surgical History Date Name Laterality Status Provider Name and Address Organization Details Recorded Time 04/08/20 24 Bladder Scan completed Denita Dickens-Rox bhakta [facility] 04/08/2024 11:15:31 04/08/20 24 Blood Draw/CONVERTIBLE SOFA BEDSPRING TESTER/PSA RESULTS completed Denita Cantu kian livia, [facility] 04/08/2024 11:15:39 04/02/20 Bladder Scan completed Glenn Calderon MD [address] [place] [address], [phone], [facility] 04/02/2023 11:04:10 04/02/20 23 Blood Draw/CONVERTIBLE SOFA BEDSPRING TESTER/PSA RESULTS completed Glenn Calderon MD [address] [place] [address], [phone], [facility] 04/02/2023 11:04:18 Appendectomy completed Glenn Calderon MD [address] [place] [address],[address], [address], [facility] 04/02/2023 11:03:55 Imaging Results None recorded. Procedure [...] and Address Organization Details Last Updated DateTime 05/02/2022 180.34 cm 41.8 kg/m2 102620.71 g Carly Alcantara [facility] 05/02/2022 09:43:01 Date Recorded Body height Body mass index (BMI) Body weight Provider Name and Address Organization Details Last Updated DateTime 04/02/2023 180.34 cm 41.8 kg/m2 002246.71 g Glenn Calderon MD [address] [place] [address],[address] [address] 04/02/2023 11:02:25 Date Recorded Body height Body mass index (BMI) Body weight Provider Name and Address Organization Details Last Updated DateTime 04/08/2024 180.34 cm 41.8 kg/m2 069417.71 steffi Denita langston [facility] 04/08/2024 11:14:51 Social History Question Answer Notes LastModified by Organizat ion Details LastModified Time Tobacco Smoking Status Current Every Day Smoker Glenn Calderon MD [address] [place] [address],[address], [address] 04/02/2023 11:03:45 What Is Your Level Of [...] Recorded Time Influenza, recombinant, quadrivalent, PF 07/15/2019 completed Denita bhakta [facility] 04/08/2024 11:14:56 zoster recombinant 07/23/2018 completed Miletzi Dickens-Valer o null, [facility] 04/08/2024 11:14:57 Influenza, high-dose, quadrivalent, PF 07/20/2022 completed Miletzi Dickens-Valer o null, [facility] 04/08/2024 11:14:57 Influenza, high-dose, quadrivalent, PF 07/26/2021 completed Miletzi Dickens-Valer o null, [facility] 04/08/2024 11:14:57 COVID-19, mRNA, LNP-S, PF, 100 mcg/0.5mL dose or 50 mcg/0.25mL dose 02/06/2021 completed Miletzi Dickens-Valer o null, [facility] 04/08/2024 11:14:57 COVID-19, mRNA, LNP-S, PF, 100 mcg/0.5mL dose or 50 mcg/0.25mL dose 03/07/2021 completed Miletzi Dickens-Valer o null, [facility] 04/08/2024 11:14:57 influenza, unspecified formulation 08/21/2012 completed Miletzi Dickens-Valer o null, [facility] 04/08/2024 11:14:57 Tdap 02/16/2011 completed Miletzi Dickens-Valer o null, [facility] 04/08/2024 11:14:57 Influenza, high-dose, trivalent, PF 06/20/2015 completed Miletzi Dickens-Valer o null, [facility] 04/08/2024 11:14:57 Influenza, high-dose, trivalent, PF 06/25/2014 completed Miletzi Dickens-Valer o null, [facility] 04/08/2024 11:14:57 Influenza, high-dose, trivalent, PF 07/09/2017 completed Miletzi Dickens-Valer o null, [facility] 04/08/2024 11:14:57 Influenza, high-dose, trivalent, PF 07/23/2018 completed Miletzi Dickens-Valer o null, [facility] 04/08/2024 11:14:57 Influenza, high-dose, trivalent, PF 09/23/2013 completed Denita bhakta, [facility] 04/08/2024 11:14:57 pneumococcal polysaccharide PPV23 02/23/2016 completed Glenn Calderon MD [address] [place] [address], [address], [facility] 04/02/2023 11:02:35 Pneumococcal conjugate PCV 13 08/22/2015 completed Glenn Calderon MD [address],[facility] [address], [place], [address], [facility] 04/02/2023 11:02:35 Past Encounters Encounter ID Performer Location Encounter Start Date Encounter Closed Date Diagnosis/Indication Diagnosis SNOMED-CT Code Diagnosis ICD10 Code [id number] MD TEJINDER [facility] [address] [place] [address] 05/02/2022 09:41:27 05/09/2022 10:02:47 Malignant tumor of prostate 225101251 C61 Lower urin lainey tract symptoms due to benign prostatic hypertrophy 2695080382 9101 N40.1 [id number] MD TEJINDER [facility] [address] [place] [address] 04/02/2023 10:40:47 04/12/2023 17:11:26 Malignant tumor of prostate 597618900 C61 Benign pro static hyperplasia with outflow obstruction 996451589 N40.1 [id number] Denita mota [facility] [address] [place] [address] 04/08/2024 10:39:09 04/17/2024 13:48:27 Malignant tumor of prostate 321270659 C61 Benign pro static hyperplasia with outflow obstruction 969672692 N40.1 Health Concerns Section Related Observation LastModified by Organization Detai ls LastModified Time None Recorded Concern Status LastModified by Organization Details LastModified Time None Recorded Advance Directives Directive None Recorded Payers Encounter Date Sequence Insurance Name Policy Number Policy Hernandez Covered Member ID Hernandez Member ID Guarantor Name 05/02/2022 1 [facility] [id number] Ron D [place] [id number] Ron D [place] 04/02/2023 1 [facility] [id number] Ron D [place] [id number] Ron D Brittni 04/08/2024 1 [facility] [id number] Ron D Brittni [id number] Ron D Brittni Notes Date Note Type Note Provider Name and Address Organization Details Recorded Time 05/02/2022 text/html HPI Notes: 71 yo male with H/O prostate cancer (dx 04/17/12) - T1c - [place] 3+4 = 7 - involving all cores - prostate = 43 gm, PSA = 10.9. CT scan and Bone scan (04/29/12) were negative for metastatic disease. - s/p XRT and 2 yr course of Lupron (complete in May 2014). He is currently on Flomax 0.8 mg daily for obstructive urinary symptoms. 02/13/21 - He presents for follow-up on prostate cancer. He denies hot flashes. He notes occasional slow stream - denies dysuria. He voids every 3-4 hours during the day and 0-1x per night. He does have erectile dysfunction - unable to obtain or maintain erections - he does not want treatment at this time. 05/02/22 - He presents for follow-up on prostate cancer. He denies hot flashes. He voids every 2-4 hours during the day and 1x per night. He no change in ED - unable to obtain or maintain erections - he does not want treatment at this time. PSA - 10.9 (April 2012) - 0.08 (11/19/12) - < 0.06 (01/12/15) - < 0.06 (07/14/15) - < 0.06 (02/23/16) - 0.08 (07/23/19) - 0.12 (03/21/20) - 0.09 (06/22/20) - 0.08 (02/08/21) - 0.12 (07/12/21) - 0.15 (04/10/22) This visit was conducted by telephone due to the COVID-19 crisis. Prior to conducting our telephone visit, the patient was apprised of the risks, benefits and alternatives to telephone visits including but not limited to poor audio quality, interrupted visits due to technological limitations, delays in medical evaluation and treatment due to deficiencies or failures of equipment, failure of security protocols resulting in a breach of privacy of personal medical information and a lack of access to complete medical records resulting in not fully informed decisions. Also, because of the COVID-19 pandemic, it was not possible for the patient to sign the privacy regulations, HIPAA release and assignment of benefits forms. The patient was given the opportunity to ask questions about these policies and gave verbal acknowledgement and approval of these policies as well as to hold this meeting by telephone. Lastly, the patient agreed to allowing their medication history to be pulled from a national pharmacy database to facilitate and coordinate their care. Glenn Calderon MD [address] [place] [address],[address], [place], [address], [facility] 05/02/2022 10:15:57 04/02/2023 text/html HPI Notes: 72 yo male with H/O prostate cancer (dx 04/17/12) - T1c - [place] 3+4 = 7 - involving all cores - prostate = 43 gm, PSA = 10.9. CT scan and Bone scan (04/29/12) were negative for metastatic disease. - s/p EBRT and 2 yr course of Lupron (complete in May 2014). His PSA has been undetectable. He is currently on Flomax 0.8 mg daily for obstructive urinary symptoms. 02/13/21 [...] unable to obtain or maintain erections - PSA - 0.14 - PVR = 100mL PSA - 10.9 (April 2012) - 0.08 (11/19/12) - < 0.06 (01/12/15) - < 0.06 (07/14/15) - < 0.06 (02/23/16) - 0.08 (07/23/19) - 0.12 (03/21/20) - 0.09 (06/22/20) - 0.08 (02/08/21) - 0.12 (07/12/21) - 0.15 (04/10/22) - 0.14 (04/02/25) CT scan and Bone scan (04/29/12) were negative for metastatic disease Glenn Calderon MD [address] [place] [address],[address], [place], [address], [facility] 04/02/2023 11:24:12 04/08/2024 text/html HPI Notes: 73 yo male with H/O prostate cancer (dx 04/17/12) - T1c - [place] 3+4 = 7 - involving all cores [...] (04/29/12) were negative for metastatic disease Denita bhakta, [facility] - [facility] 04/08/2024 17:28:46
--- OUTSIDE RECORDS SUMMARY | 2024-06-22 00:10 | XMS_ITS | Continuity of Care Document ---
Author Organization [facility], [facility] Address [address] [place] [address] Assessment No assessment recorded. Plan of Treatment Reminders Order Date Submit Date Provider Last Modified By Organization Details Last Modified Time Details Appointments None recorded . Lab PSA, serum or plasma 024 04/08/20 24 [facility], [address], [place], [address], 4 19:10:10 PSA, total, serum or plasma 024 04/08/20 24 [facility], [address], [place], [address], 4 19:10:10 Referral None recorded . Procedures None recorded . Surgeries None recorded . Imaging None recorded . Medication Orders None recorded . Patient TargetsNo targets recorded. Patient InstructionsNo instructions recorded. Reason for Referral None Reported. Results Created Date Observation Date Name Description Value Unit Range Abnormal Flag Note LastModifiedBy Organization Detail LastModifiedTime 04/08/20 24 04/08/2024 PSA, serum or plasm a PSA 0.15ng /mL 0-4.0 NG/mL Not Available [facility] [address], [place], [address], 04/02/2024 09:54:53 Result Notes None recorded. Problems Name Problem SNOMED Code Status Onset Date Resolution Date Notes Provider Name and Address Organization Details Recorded Time Primary malignant neoplasm of prostate 71847213 Active 2011 185 : CARCINOMA -PROSTATE - Notes: biopsies 3+4=7. negative bone scan and ct - s/p XRT and 2 yr of hormonal therapy (complete 05/2012). Not Available [facility] 0 02:07:25 Prostate specific antigen above reference range 936038915 Active 2011 790.93 : ELEVATED PSA Not Available [facility] 0 02:07:25 Problem Notes None recorded. Procedures Surgical History Date Name Laterality Status Provider Name and Address Organization Details Recorded Time 04/08/20 24 [facility] 04/08/2024 11:15:31 04/08/20 24 Blood Draw/BIBLE TEACHER/PSA RESULTS [facility] 04/08/2024 11:15:39 04/02/20 23 Bladder Scan completed Glenn Calderon MD [address] [place] [address],[address], [address], [facility] 04/02/2023 11:04:10 04/02/20 23 Blood Draw/BIBLE TEACHER/PSA RESULTS completed Glenn Calderon MD [address] [place] [address],[address], [place], [address], [facility] 04/02/2023 11:04:18 Appendectomy completed Glenn Calderon MD [address] [place] [address],[address], [address], [facility] 04/02/2023 11:03:55 Imaging Results None recorded. Procedure [...] Updated DateTime 04/08/2024 180.34 cm 41.8 kg/m2 032807.71 g Denita langston [facility] 04/08/2024 11:14:51 Social History Question Answer Notes LastModified by Organizat ion Details LastModified Time Tobacco Smoking Status Current Every Day Smoker Glenn Calderon MD [address] [facility],[address], [place], [address], [facility] 04/02/2023 11:03:45 What Is Your Level [...] recombinant, quadrivalent, PF 07/15/2019 completed Denita bhakta [facility] 04/08/2024 11:14:56 zoster recombinant 07/23/2018 completed Miletzi Dickens-Valer o null, [facility] 04/08/2024 11:14:57 Influenza, high-dose, quadrivalent, PF 07/20/2022 completed Miletzi Dickens-Valer o null, [facility] 04/08/2024 11:14:57 Influenza, high-dose, quadrivalent, PF 07/26/2021 completed Miletzi Dickens-Valer o null, [facility] 04/08/2024 11:14:57 COVID-19, mRNA, LNP-S, PF, 100 mcg/0.5mL dose or 50 mcg/0.25mL dose 02/06/2021 completed Miletzi Dickens-Valer o null, [facility] 04/08/2024 11:14:57 COVID-19, mRNA, LNP-S, PF, 100 mcg/0.5mL dose or 50 mcg/0.25mL dose 03/07/2021 completed Miletzi Dickens-Valer o null, [facility] 04/08/2024 11:14:57 influenza, unspecified formulation 08/21/2012 completed Miletzi Dickens-Valer o null, [facility] 04/08/2024 11:14:57 Tdap 02/16/2011 completed Miletzi Dickens-Valer o null, [facility] 04/08/2024 11:14:57 Influenza, high-dose, trivalent, PF 06/20/2015 completed Miletzi Dickens-Valer o null, [facility] 04/08/2024 11:14:57 Influenza, high-dose, trivalent, PF 06/25/2014 completed Miletzi Dickens-Valer o null, [facility] 04/08/2024 11:14:57 Influenza, high-dose, trivalent, PF 07/09/2017 completed Miletzi Dickens-Valer o null, [facility] 04/08/2024 11:14:57 Influenza, high-dose, trivalent, PF 07/23/2018 completed Miletzi Dickens-Valer o null, [facility] 04/08/2024 11:14:57 Influenza, high-dose, trivalent, PF 09/23/2013 completed Denita bhakta [facility] 04/08/2024 11:14:57 pneumococcal polysaccharide PPV23 02/23/2016 completed Glenn Calderon MD [address] [place] [address],[address], [address], [facility] 04/02/2023 11:02:35 Pneumococcal conjugate PCV 13 08/22/2015 completed Glenn Calderon MD [address] [place] [address],[facility] [address], [place], [address], [facility] 04/02/2023 11:02:35 Past Encounters Encounter ID Performer Location Encounter Start Date Encounter Closed Date Diagnosis/Indication Diagnosis SNOMED-CT Code Diagnosis ICD10 Code [id number] Denita mota [facility] [address] [place] [address] 04/08/2024 10:39:09 04/17/2024 13:48:27 Malignant tumor of prostate 634092588 C61 Benign pro static hyperplasia with outflow obstruction 490304560 N40.1 Health Concerns Section Related Observation LastModified by Organization Detai ls LastModified Time None Recorded Concern Status LastModified by Organization Details LastModified Time None Recorded Payers Encounter Date Sequence Insurance Name Policy Number Policy Hernandez Covered Member ID Hernandez Member ID Guarantor Name 04/08/2024 1 [facility] [id number] Ron Elkins [id number] Ron Elkins Notes Date Note Type Note Provider Name and Address Organization Details Recorded Time 04/08/2024 text/html HPI Notes: 73 yo male with H/O prostate cancer (dx 04/17/12) - T1c - [place] 3+4 = 7 - involving all cores [...] scan (04/29/12) were negative for metastatic disease VIRGIE Bundy - [facility] 04/08/2024 17:28:46
== END 2024-06-15 07:31 | disposition home or self-care (01) ==
LOC: NFLDREF 06-22 00:07
PROVIDERS: PCP Internal Medicine; Referring Provider Internal Medicine; Visit Provider Internal Medicine
DX: E11.9 Type 2 diabetes mellitus without complications (principal); Z13.818 Encounter for screening for other digestive system disorders
CPT/HCPCS: 80048; 80053; 80061; 80076; 82043; 82570; G0103

== ENCOUNTER 2025-02-15 08:40 | Outpatient (CLI) | payer MEDICARE, BC, SELFPAY ==
[2025-02-15] MEDS: PERFLUTREN LIPID MICROSPHERES 2 ML VIAL IVP (09:36)
== END 2025-02-15 08:41 | disposition home or self-care (01) ==
PROVIDERS: PCP Internal Medicine; Visit Provider Internal Medicine
DX: I50.20 Unspecified systolic (congestive) heart failure (principal)
CPT/HCPCS: 93306; Q9957